=== PATIENT | female | born 1980 | race Caucasian/White ===

== ENCOUNTER 2024-06-09 14:11 | Emergency (ER) | payer OTHER, SELFPAY ==
[2024-06-09 14:12] VITALS: BP 137/85; PULSE 91; RESP 16; TEMP 36.8; O2SAT 98; BMI 33.0
[2024-06-09 14:37] VITALS: BP 125/82; PULSE 76; RESP 16; TEMP 36.8; O2SAT 97
[2024-06-09 14:49] LABS: Absolute Lymphocyte Count 1.61 X10^3/uL (0.83-4.51); Absolute Neutrophil Count 5.4 X10^3/uL (2.0-7.7); Basophil# 0.04 X10^3/uL; Basophil% 0.5 % (0-1); Eosinophil# 0.14 X10^3/uL; Eosinophils% 1.8 % (0-5); Hematocrit 35.8 % (37-47); Hemoglobin 11.7 g/dL (12.0-15.0); Lymphocyte # 1.61 X10^3/ul (0.83-4.51); Lymphocyte % 20.8 % (19-41); Mean Corp Hgb Conc 32.7 g/dL (32-36); Mean Corpuscular Volume 91.8 fL (81-99); Monocyte# 0.48 X10^3/uL; Monocyte% 6.2 % (0-10); NRBC Flagged by Analyzer 0 % (0-5); Neutrophil # 5.44 X10^3/uL (2.7-7.7); Neutrophil % 70.3 % (47-70); POSITIVE MORPHOLOGY YES; Platelet Count 327 K/mm3 (150-450); RBC Distribution Width CV 13.6 % (11.6-14.6); RBC Distribution Width SD 46.1 fl (35.1-43.9); White Blood Count 7.7 K/mm3 (4.4-11.0)
[2024-06-09 14:52] LABS: Prothrombin Time (Protime)PT. 12.7 SECONDS (11.7-14.9)
[2024-06-09 14:53] LABS: Partial Thromboplast Time 28.1 Seconds (24.1-36.2)
[2024-06-09 14:58] LABS: Differential Indicated SCAN CRITERIA MET
[2024-06-09 15:14] LABS: Anion Gap 6 (5-15); BUN 10 mg/dL (7-18); BUN/Creat Ratio 12.8 RATIO (10-20); Calcium,Total 9.2 mg/dL (8.5-10.1); Chloride 104 mmol/L (98-107); Creatinine, Serum 0.78 mg/dL (0.55-1.02); EST Glomerular Filtration Rate 85 mL/min (>60); Est Glom Filt Rate - Afr Amer 103 mL/min (>60); Estimated Creatinine Clearance 106.68 ml/min; Glucose 90 mg/dL (74-106); Potassium 3.8 mmol/L (3.5-5.1); Sodium Level 138 mmol/L (136-145); Troponin-I HS < 3 pg/mL (3.0-54.0)
[2024-06-09 15:44] LABS: Differential Comment SCANNED
[2024-06-09 16:00] VITALS: PULSE 80; RESP 13; O2SAT 96
[2024-06-09 16:26] VITALS: BP 121/76; PULSE 82; RESP 20; O2SAT 96
[2024-06-09] MEDS: Ceftriaxone 1 GM/50 ML BAG IV (17:01)
[2024-06-09] MEDS: Azithromycin 500 MG in Dextrose 5%-Water (250mL Bag) 250 ML 250 MG IV (17:01)
[2024-06-09 18:00] VITALS: RESP 18; O2SAT 96
== END 2024-06-09 19:00 | disposition home or self-care (01) ==
PROVIDERS: Emergency Provider Emergency Medicine; PCP Nurse Practitioner Family; Visit Provider Emergency Medicine
DX: J18.9 Pneumonia, unspecified organism (principal); R79.1 Abnormal coagulation profile
CPT/HCPCS: 71275; 80048; 84484; 85025; 85610; 85730; 93005; 96365; 96366; 96368; 99283; J7040; Q9967; A4216